=== PATIENT | male | born 1990 ===

== ENCOUNTER 2023-06-29 03:36 | Emergency (ER) | payer SELFPAY ==
[~2023-06-29] VITALS: Ht 165.1 cm; Wt 51.4 kg
[2023-06-29 03:41] VITALS: BP 152/102; PULSE 70; RESP 18; TEMP 98.6; O2SAT 99
== END 2023-06-29 10:54 | disposition left against medical advice (07) ==
LOC: ER 03:37
DX: R51.9 Headache, unspecified (principal); R10.9 Unspecified abdominal pain; Z53.21 Procedure and treatment not carried out due to patient leaving prior to being seen by health care provider
CPT/HCPCS: 99281